=== PATIENT | female | born 1975 | race Caucasian/White ===

== ENCOUNTER 2021-08-03 06:25 | Day surgery (SDC) | payer OTHER, SELFPAY ==
--- NOTE | 2021-07-30 09:52 | P.CONAN_ITS ---
Documented by User: Lizz Canela NP 07/30/21 09:53 HPI - Anesthesia Eval Consult details Narrative: 45yo F for Colonoscopy PMFSH Past Medical History Medical History (Updated 07/27/21 @ 13:19 by Sylvie Sultana RN) Anxiety and depression Arthritis Asthma Scanlon esophagus Chronic pain Elevated cholesterol Frequent headaches GERD (gastroesophageal reflux disease) PTSD (post-traumatic stress disorder) Raynauds disease Surgical History Surgical History (Updated 07/27/21 @ 13:07 by Sylvie Sultana RN) History of esophagogastroduodenoscopy (EGD) History of hysterectomy History of lung surgery History of surgery on left wrist Hx of colonoscopy Hx of surgical procedure Status post cryoablation Social History Social History Patient Tobacco Use Status: Current everyday Tobacco user Use of substances other than those prescribed or required for medical reasons: No Have you been hit, kicked, punched, or otherwise hurt by someone within the past year? If so, by whom?: No Are you DNR?: No Advance Directives: No Advance Directives Information Provided: Yes Recently lost weight without trying: No Nutrition Risks: No Nutritional Risk Patient : No Meds Allergies Allergy/AdvReac Type Severity Reaction Status Date / Time codeine [CODEINE] Allergy Unknown THROAT Verified 08/03/21 06:08 SWELLING Codeine Phosphate Allergy Unknown hives/throat Uncoded 08/03/21 06:08 swelling Home Medications Medication Instructions Recorded Confirmed Last Taken Type Probiotic 07/27/21 Unknown History albuterol sulfate 90 mcg/actuation 2 puff INHALATION Q6H PRN 07/27/21 07/27/21 Unknown History aerosol inhaler (ProAir HFA) aripiprazole 10 mg tablet 1 tab PO DAILY 07/27/21 07/27/21 Unknown History armodafinil 150 mg tablet 1 tab PO DAILY 07/27/21 07/27/21 Unknown History ascorbic acid (vitamin C) 250 mg 250 mg PO DAILY 07/27/21 07/27/21 Unknown History tablet (Vitamin C) chlordiazepoxide-clidinium 5 1 cap PO DAILY PRN 07/27/21 07/27/21 Unknown History mg-2.5 mg capsule (Librax (with clidinium)) cholecalciferol (vitamin D3) 50 50 mcg PO DAILY 07/27/21 07/27/21 Unknown History mcg (2,000 unit) capsule (Vitamin D3) cyanocobalamin (vitamin B-12) 1,000 mcg PO DAILY 07/27/21 07/27/21 Unknown History 1,000 mcg tablet,extended release (Vitamin B-12 ER) duloxetine 60 mg capsule,delayed 1 cap PO DAILY 07/27/21 07/27/21 Unknown History release ibuprofen 600 mg tablet 600 mg PO Q8H PRN 07/27/21 07/27/21 Unknown History omeprazole 20 mg capsule,delayed 1 cap PO DAILY 07/27/21 07/27/21 Unknown History release thiamine HCl (vitamin B1) 500 mg 500 mg PO DAILY 07/27/21 07/27/21 Unknown History tablet Exam Exam Date and Time: July 30, [id number] Assessment and Plan Assessment Anesthesia Assessment: Chart Reviewed Documented by User: Maddy Multani MD 08/03/21 07:21 [facility] Past Medical History Medical History (Updated 07/27/21 @ 13:19 by Sylvie Sultana, RN) Anxiety and depression Arthritis Asthma Scanlon esophagus Chronic pain Elevated cholesterol Frequent headaches GERD (gastroesophageal reflux disease) PTSD (post-traumatic stress disorder) Raynauds disease Functional capacity: independent ambulation Patient : No Surgical History Surgical History (Updated 07/27/21 @ 13:07 by Sylvie Sultana, RN) History of esophagogastroduodenoscopy (EGD) History of hysterectomy History of lung surgery History of surgery on left wrist Hx of colonoscopy Hx of surgical procedure Status post cryoablation History of Problems with Anesthesia: No Social History Social History Patient Tobacco Use Status: Current everyday Tobacco user Use of substances other than those prescribed or required for medical reasons: No Have you been hit, kicked, punched, or otherwise hurt by someone within the past year? If so, by whom?: No Are you DNR?: No Advance Directives: No Advance Directives Information Provided: Yes Recently lost weight without trying: No Nutrition Risks: No Nutritional Risk Patient : No Meds Allergies Allergy/AdvReac Type Severity Reaction Status Date / Time codeine [CODEINE] Allergy Unknown THROAT Verified 08/03/21 06:08 SWELLING Codeine Phosphate Allergy Unknown hives/throat Uncoded 08/03/21 06:08 swelling Home Medications Medication Instructions Recorded Confirmed Last Taken Type Probiotic 07/27/21 Unknown History albuterol sulfate 90 mcg/actuation 2 puff INHALATION Q6H PRN 07/27/21 07/27/21 Unknown History aerosol inhaler (ProAir HFA) aripiprazole 10 mg tablet 1 tab PO DAILY 07/27/21 07/27/21 Unknown History armodafinil 150 mg tablet 1 tab PO DAILY 07/27/21 07/27/21 Unknown History ascorbic acid (vitamin C) 250 mg 250 mg PO DAILY 07/27/21 07/27/21 Unknown History tablet (Vitamin C) chlordiazepoxide-clidinium 5 1 cap PO DAILY PRN 07/27/21 07/27/21 Unknown History mg-2.5 mg capsule (Librax (with clidinium)) cholecalciferol (vitamin D3) 50 50 mcg PO DAILY 07/27/21 07/27/21 Unknown History mcg (2,000 unit) capsule (Vitamin D3) cyanocobalamin (vitamin B-12) 1,000 mcg PO DAILY 07/27/21 07/27/21 Unknown History 1,000 mcg tablet,extended release (Vitamin B-12 ER) duloxetine 60 mg capsule,delayed 1 cap PO DAILY 07/27/21 07/27/21 Unknown History release ibuprofen 600 mg tablet 600 mg PO Q8H PRN 07/27/21 07/27/21 Unknown History omeprazole 20 mg capsule,delayed 1 cap PO DAILY 07/27/21 07/27/21 Unknown History release thiamine HCl (vitamin B1) 500 mg 500 mg PO DAILY 07/27/21 07/27/21 Unknown His tory tablet Exam Airway Mallampati Class: II TM Dist: >3cm Neck ROM: Full Heart: RRR Lungs: CTA Assessment and Plan Final Anesthetic Review History of Problems with Anesthesia: No ASA Class: II Final Preanesthetic Review: No Changes in Pt Med Stat, Meds/Allgs Chart Reviewed, Consent Obtained/Reviewed and Anes Risks/Benef Reviewed Patient Risk: Low Procedure Risk: Low Anesthetic Plan Anesthetic Plan: MAC: Disposition: Standard PACU
[2021-08-03 06:29] VITALS: BP 139/81; PULSE 84; RESP 18; TEMP 36.6; O2SAT 99; BMI 29.2
[2021-08-03] MEDS: Lactated Ringers 1,000 ML 100 ML IVCONT (06:49)
[2021-08-03 08:24] VITALS: BP 116/73; PULSE 69; RESP 16; TEMP 36.7; O2SAT 97
--- NOTE | 2021-08-03 08:26 | PM.OP ---
Brief Operative Note Date of Service: 08/03/21 Pre-op diagnosis: Screening Post-op diagnosis: other (Internal hemorrhoids) Procedure: Colonoscopy to the cecum with biopsies Surgeon: Kolton Mccain Anesthesia: MAC Was an Recreation Instructor used for this Procedure?: No Estimated blood loss (mL): 2.0 Pathology: other (A. Bx from Ileocecal valve in area of previous adenoma) Condition: stable Disposition: PACU
[2021-08-03 08:39] VITALS: BP 123/76; PULSE 67; RESP 16; TEMP 36.7; O2SAT 99
--- NOTE | 2021-08-03 09:41 | OP_ITS ---
SURGEON: Kolton Mccain MD INDICATIONS: The patient presents for followup of colorectal cancer screening and personal history of tubular adenomas. Full consent obtained from her for this, including risks of bleeding and perforation. PREOPERATIVE DIAGNOSIS: Colorectal cancer screening and personal history of tubular adenomas. POSTOPERATIVE DIAGNOSIS: Colorectal cancer screening and personal history of tubular adenomas, internal hemorrhoids. PROCEDURE PERFORMED: Colonoscopy to the cecum with biopsies. ESTIMATED BLOOD LOSS: COMPLICATIONS: ANESTHESIA: Monitored anesthesia care. ASSISTANTS: SPECIMENS: DESCRIPTION OF PROCEDURE: Patient was placed in the left lateral decubitus position. The digital rectal exam revealed no abnormalities. The Olympus video pediatric colonoscope was entered into the rectum and advanced easily to the cecum. Once in the cecum, I did identify normal-appearing cecal pouch with appendiceal orifice and a normal-appearing ileocecal valve. The entire cecum was well visualized and appeared normal. The ileocecal valve was carefully inspected. Along the inferior portion, at the site of her previous adenoma, was some scarring extending from the very inferior portion of the ileocecal valve along the ascending colon. The ileocecal valve itself did not appear to have any evidence of adenoma and I only visualized normal ileal mucosa. I did obtain multiple biopsies from this inferior portion of the ileocecal valve as well as along the area of the scar in the ascending colon. The scope was then slowly withdrawn assessing all mucosal surfaces carefully. Preparation was excellent. I did not visualize any polyps, colitis, or angiodysplasia. In the rectum, scope was retroflexed visualizing some internal hemorrhoids, but no other pathology. The rectal mucosa appeared normal. Scope was straightened and withdrawn from the patient. She tolerated the procedure well and was returned to recovery area in stable condition. IMPRESSION: 1. Internal hemorrhoids. 2. Area of scar along the region of previous adenoma by the ileocecal valve, status post biopsy. PLAN: The results of the biopsies will be checked. Assuming there is no adenomatous tissue, I would then recommend a repeat colonoscopy in 2022, when she has her next upper endoscopy for the Scanlon's esophagus. She will otherwise see me on a p.r.n. basis. MD AIDAN Whitley/IVET / [phone] NICOLLE
--- NOTE | 2021-08-03 12:26 | HO.POSTANES ---
Post Anesthesia Evaluation Post Anesthesia Evaluation Vital Signs: Vital Signs Temp Pulse Resp BP Pulse Ox 08/03/21 08:39 98.1 F 67 16 123/76 99 08/03/21 08:24 98.1 F 69 16 116/73 97 08/03/21 06:29 98 F 84 18 139/81 99 Anesthesia: Monitored Mental Status: Awake Pain Control: Satisfactory Nausea/Vomiting: None Hydration: Adequate Anesthesia-Related Issues: No Anes. Related Issues
== END 2021-08-03 09:11 | disposition home or self-care (01) ==
PROVIDERS: PCP Nurse Practitioner Family; Visit Provider Internal Medicine
PROC: 0DJD8ZZ Inspection of Lower Intestinal Tract, Via Natural or Artificial Opening Endoscopic (ICD-10-PCS; CPT 45378; principal; 2021-08-03 07:30)
DX: Z12.11 Encounter for screening for malignant neoplasm of colon (principal); Z86.010 Personal history of colon polyps; K21.00 Gastro-esophageal reflux disease with esophagitis, without bleeding; K22.70 Barrett's esophagus without dysplasia; K58.9 Irritable bowel syndrome, unspecified; G89.29 Other chronic pain; I73.00 Raynaud's syndrome without gangrene; E78.00 Pure hypercholesterolemia, unspecified; J45.909 Unspecified asthma, uncomplicated; Z79.899 Other long term (current) drug therapy; Z79.1 Long term (current) use of non-steroidal anti-inflammatories (NSAID); Z88.8 Allergy status to other drugs, medicaments and biological substances; F17.210 Nicotine dependence, cigarettes, uncomplicated
CPT/HCPCS: 45380; 88305

== ENCOUNTER 2024-06-04 08:26 | Day surgery (SDC) | payer OTHER, SELFPAY ==
[2024-05-31 14:29] VITALS: BMI 33.7
[2024-06-04 08:36] VITALS: BMI 29.6
--- NOTE | 2024-06-04 08:39 | P.CONAN_ITS ---
[facility] Past Medical History Medical History COPD (chronic obstructive pulmonary disease) Frequent headaches Arthritis Scanlon esophagus GERD (gastroesophageal reflux disease) Chronic pain Raynauds disease PTSD (post-traumatic stress disorder) Anxiety and depression Asthma Elevated cholesterol Surgical History Surgical History Hx of surgical procedure History of surgery on left wrist Status post cryoablation Hx of colonoscopy History of esophagogastroduodenoscopy (EGD) History of lung surgery History of hysterectomy History of Problems with Anesthesia: No Social History Social History Are you a primary dog daycare provider to a significant other at home: No Do you presently have visiting nurse or other home services: No Patient Tobacco Use Status: Current everyday Tobacco user Tobacco use type: Cigarette Cigarette Packs Per Day: 1 Cigarettes Per Day: 20.0 Smoked in Last 30 Days: Yes Patient Interested in Nicotine Replacement: No Have you been hit, kicked, punched, or otherwise hurt by someone within the past year? If so, by whom?: No Are you DNR?: No Advance Directives: No Advance Directives Information Provided: Yes Recently lost weight without trying: No Nutrition Risks: No Nutritional Risk Meds Allergies Allergy/AdvReac Type Severity Reaction Status Date / Time codeine [CODEINE] Allergy Unknown THROAT Verified 06/04/24 08:38 SWELLING Active Medications: Current Medications Sodium Biphosphate/Sodium Phosphate (Sodium Phosphate,[place]-Dibasic 133 Ml Enema) 133 ml [place] ONCE PRN PRN Reason: Poor Colonoscopy Prep Results Home Medications ?Medication ?Instructions ?Recorded ?Confirmed ?Last Taken ?Type albuterol sulfate 90 mcg/actuation 2 puff inhalation Q6H PRN Wheezing 07/27/21 05/31/24 Unknown History aerosol inhaler (ProAir HFA) aripiprazole 10 mg tablet 1 tab PO DAILY 07/27/21 05/31/24 Unknown History armodafinil 150 mg tablet 1 tab PO DAILY 07/27/21 05/31/24 Unknown History ascorbic acid (vitamin C) 250 mg 250 mg PO DAILY 07/27/21 05/31/24 Unknown History tablet (Vitamin C) chlordiazepoxide-clidinium 5 1 cap PO DAILY PRN Abdominal 07/27/21 07/27/21 Unknown History mg-2.5 mg capsule (Librax (with Discomfort clidinium)) cholecalciferol (vitamin D3) 50 50 mcg PO DAILY 07/27/21 05/31/24 Unknown History mcg (2,000 unit) capsule (Vitamin D3) cyanocobalamin (vitamin B-12) 1,000 mcg PO DAILY 07/27/21 05/31/24 Unknown History 1,000 mcg tablet,extended release (Vitamin B-12 ER) duloxetine 60 mg capsule,delayed 1 cap PO DAILY 07/27/21 05/31/24 Unknown Histo ry release ibuprofen 600 mg tablet 600 mg PO Q8H PRN Pain 07/27/21 05/31/24 Unknown History omeprazole 20 mg capsule,delayed 1 cap PO DAILY 07/27/21 05/31/24 Unknown History release thiamine HCl (vitamin B1) 500 mg 500 mg PO DAILY 07/27/21 05/31/24 Unknown History tablet lisinopril 20 mg tablet 20 mg PO DAILY 05/31/24 05/31/24 Unknown History semaglutide 1 mg/dose (4 mg/3 mL) 1 mg subcut QWEEK 05/31/24 05/31/24 05/26/24 History subcutaneous pen injector (Ozempic) Exam Height,Weight and Vital Signs: Height 5 ft 3 in Weight 75.75 kg Airway Mallampati Class: II TM Dist: >3cm Neck ROM: Full Loose/Missing/Broken Teeth: No Heart: RRR Lungs: CTA Assessment and Plan Assessment Anesthesia Assessment: Anesthesia Plan Discussed and Chart Reviewed Final Anesthetic Review History of Problems with Anesthesia: No NPO: Yes ASA Class: III Final Preanesthetic Review: Meds/Allgs Chart Reviewed, Consent Obtained/Reviewed and Anes Risks/Benef Reviewed Patient Risk: Intermediate Procedure Risk: Intermediate Anesthetic Plan Anesthetic Plan: MAC: Disposition: Standard PACU
[2024-06-04] MEDS: Lactated Ringers 1,000 ML 80 ML IVCONT (08:46)
[2024-06-04 08:56] VITALS: BP 132/86; PULSE 90; RESP 18; TEMP 36.6; O2SAT 97
[2024-06-04 10:05] VITALS: BP 113/70; PULSE 78; RESP 18; TEMP 36.6; O2SAT 99
--- NOTE | 2024-06-04 10:14 | PM.OP ---
Brief Operative Note Date of Service: 06/04/24 Pre-op diagnosis: Scanlon's, Screening Post-op diagnosis: other (Hiatal hernia, Scanlon's, Gastric retention, Canceled colonoscopy) Procedure: Upper endoscopy aborted and Colonoscopy canceled due to gastric retention Surgeon: Kolton Mccain MD Anesthesia: MAC Was an Director Of Education And Training used for this Procedure?: No Estimated blood loss (mL): 0 Pathology: none sent Condition: stable Disposition: PACU
[2024-06-04 10:20] VITALS: BP 133/89; PULSE 72; RESP 18; O2SAT 99
--- NOTE | 2024-06-04 10:28 | OP_ITS ---
DATE OF SERVICE: 06/04/2024 SURGEON: Kolton Mccain MD INDICATIONS: The patient presents for evaluation of gastroesophageal reflux with Scanlon's esophagus, as well as for colorectal cancer screening and personal history of colon polyps. Full consent has been obtained from her for both procedures, including risks of bleeding and perforation. PREOPERATIVE DIAGNOSIS: POSTOPERATIVE DIAGNOSIS: PROCEDURE PERFORMED: Upper endoscopy. ESTIMATED BLOOD LOSS: COMPLICATIONS: ANESTHESIA: Monitored anesthesia care. ASSISTANTS: SPECIMENS: PREOPERATIVE DIAGNOSES: Gastroesophageal reflux, Scanlon's esophagus, colorectal cancer screening, and personal history of tubular adenoma of the colon. POSTOPERATIVE DIAGNOSES: Gastroesophageal reflux, Scanlon's esophagus, colorectal cancer screening, personal history of tubular adenoma of the colon, hiatal hernia, retained gastric contents with aborted EGD and canceled colonoscopy. DESCRIPTION OF PROCEDURE: The patient was placed in the left lateral decubitus position. The Olympus video gastroscope was passed in the posterior oropharynx and upper esophagus under direct vision. The scope was passed slowly to the distal esophagus. The gastroesophageal junction appeared at 35 cm. There were some small areas of irregularity consistent with Scanlon's mucosa. There was no evidence of any esophagitis nor any lesions. There was a small hiatal hernia. Immediately upon entering the stomach there was some retained gastric contents of a moderate amount. Therefore, the anesthesiologist felt that we could not proceed safely, and the scope was withdrawn from the patient without any biopsies being obtained. At that point, given the retained gastric contents as well as the fact that she is on Ozempic although reportedly having stopped that at least a week ago, the anesthesiologist felt that it would not be safe to proceed with general anesthesia due to the retained gastric contents and potential for aspiration with intubation. The procedure was very elective and therefore the procedure was canceled. She tolerated the procedure well otherwise and was returned to the recovery area in stable condition. IMPRESSION: 1. Hiatal hernia with Scanlon's esophagus, but biopsies were not obtained due the EGD having to be aborted due to gastric retention. PLAN: The patient will need to be rescheduled for both procedures. She will need to stop the Ozempic for at least 2 weeks and we will then also have her stay on a clear liquid diet for 48 hours in addition to doing the bowel prep again for the colonoscopy. This has been discussed with the patient and she has been given written instructions in this regard. MD AIDAN Whitley/IVET / [phone] NICOLLE
[2024-06-04 10:34] VITALS: BP 113/70; PULSE 69; RESP 18; TEMP 36.6; O2SAT 99
== END 2024-06-04 11:14 | disposition home or self-care (01) ==
PROVIDERS: PCP Nurse Practitioner Primary Care; Visit Provider Internal Medicine
PROC: (CPT 43235; principal; 2024-06-04 09:30)
DX: K22.70 Barrett's esophagus without dysplasia (principal); K44.9 Diaphragmatic hernia without obstruction or gangrene; K21.9 Gastro-esophageal reflux disease without esophagitis; Z12.11 Encounter for screening for malignant neoplasm of colon; Z86.0101 Personal history of adenomatous and serrated colon polyps; E78.00 Pure hypercholesterolemia, unspecified; J45.909 Unspecified asthma, uncomplicated; I73.00 Raynaud's syndrome without gangrene; Z79.899 Other long term (current) drug therapy; Z53.8 Procedure and treatment not carried out for other reasons
CPT/HCPCS: 43235; J2003; J2250; J2704

== ENCOUNTER 2024-10-29 07:27 | Day surgery (SDC) | payer OTHER, SELFPAY ==
[2024-10-25 12:27] VITALS: BMI 33.7
--- NOTE | 2024-10-26 09:04 | HO.ANESPROP2 ---
HPI - Anesthesia Eval Consult details Narrative: 49yo F for Upper Endoscopy and Colonoscopy Anesthesia Pre-Procedure Meds Is the patient on any of the following meds?: GLP1/DPP4 PMFSH Past Medical History Medical History HTN (hypertension) Depression Arthralgia COPD (chronic obstructive pulmonary disease) Frequent headaches Arthritis Scanlon esophagus GERD (gastroesophageal reflux disease) Chronic pain Raynauds disease PTSD (post-traumatic stress disorder) Anxiety and depression Asthma Elevated cholesterol Surgical History Surgical History Hx of hemorrhoidectomy Hx of knee surgery Hx of surgical procedure History of surgery on left wrist Status post cryoablation Hx of colonoscopy History of esophagogastroduodenoscopy (EGD) History of lung surgery History of hysterectomy History of Problems with Anesthesia: No Social History Social History Are you a primary dialysis patient care technician to a significant other at home: No Do you presently have visiting nurse or other home services: No Patient Tobacco Use Status: Former Tobacco user Tobacco use type: Cigarette Cigarette Packs Per Day: 1 Cigarettes Per Day: 20.0 Smoked in Last 30 Days: Yes Have you been hit, kicked, punched, or otherwise hurt by someone within the past year? If so, by whom?: No Are you DNR?: No Advance Directives: No Advance Directives Information Provided: Yes Recently lost weight without trying: No Nutrition Risks: No Nutritional Risk Patient : No Meds Allergies Allergy/AdvReac Type Severity Reaction Status Date / Time codeine [CODEINE] Allergy Unknown THROAT Verified 10/29/24 07:57 SWELLING Home Medications ?Medication ?Instructions ?Recorded ?Confirmed ?Last Taken ?Type albuterol sulfate 90 mcg/actuation 2 puff inhalation Q4-5H PRN 07/27/21 10/25/24 Unknown History aerosol inhaler (ProAir HFA) Wheezing aripiprazole 10 mg tablet 1 tab PO DAILY 07/27/21 10/25/24 Unknown History cholecalciferol (vitamin D3) 50 50 mcg PO DAILY 07/27/21 10/25/24 Unknown History mcg (2,000 unit) capsule (Vitamin D3) duloxetine 60 mg capsule,delayed 1 cap PO DAILY 07/27/21 10/25/24 Unknown History release ibuprofen 600 mg tablet 600 mg PO Q8H PRN Pain 07/27/21 10/25/24 Unknown History omeprazole 20 mg capsule,delayed 1 cap PO DAILY 07/27/21 10/25/24 Unknown History release lisinopril 20 mg tablet 20 mg PO DAILY 05/31/24 10/25/24 Unknown History semaglutide 1 mg/dose (4 mg/3 mL) 1 mg subcut QWEEK 05/31/24 10/25/24 10/13/24 History subcutaneous pen injector (Ozempic) armodafinil 200 mg tablet (Nuvigil) 200 mg PO BID 10/25/24 10/25/24 Unknown History fluticasone propionate 50 1 inh inhalation BID PRN Shortness 10/25/24 10/25/24 Unknown History mcg/actuation blister powder for Of Breath Or Wheezing inhalation Exam Height,Weight and Vital Signs: Height 5 ft 3 in Weight 86.183 kg Assessment and Plan Assessment Anesthesia Assessment: Chart Reviewed Final Anesthetic Review History of Problems with Anesthesia: No
--- NOTE | 2024-10-29 07:59 | P.CONAN_ITS ---
[facility] Past Medical History Medical History HTN (hypertension) Depression Arthralgia COPD (chronic obstructive pulmonary disease) Frequent headaches Arthritis Scanlon esophagus GERD (gastroesophageal reflux disease) Chronic pain Raynauds disease PTSD (post-traumatic stress disorder) Anxiety and depression Asthma Elevated cholesterol Functional capacity: independent ambulation Patient : No Family History Family history of problems with anesthesia: No Surgical History Surgical History Hx of hemorrhoidectomy Hx of knee surgery Hx of surgical procedure History of surgery on left wrist Status post cryoablation Hx of colonoscopy History of esophagogastroduodenoscopy (EGD) History of lung surgery History of hysterectomy History of Problems with Anesthesia: No Social History Social History Are you a primary intensive care ambulance paramedic to a significant other at home: No Do you presently have visiting nurse or other home services: No Patient Tobacco Use Status: Former Tobacco user Tobacco use type: Cigarette Cigarette Packs Per Day: 1 Cigarettes Per Day: 20.0 Smoked in Last 30 Days: Yes Have you been hit, kicked, punched, or otherwise hurt by someone within the past year? If so, by whom?: No Are you DNR?: No Advance Directives: No Advance Directives Information Provided: Yes Recently lost weight without trying: No Nutrition Risks: No Nutritional Risk Meds Allergies Allergy/AdvReac Type Severity Reaction Status Date / Time codeine [CODEINE] Allergy Unknown THROAT Verified 10/29/24 07:57 SWELLING Active Medications: Current Medications Albuterol Sulfate (Albuterol Sulfate (0.083%) 2.5 Mg/3 Ml Vial.Neb) 2.5 mg INHALE ONCE PRN PRN Reason: Shortness of Breath/Wheezing Lactated Ringer's (Lr) 1,000 mls @ 100 mls/hr IVCONT .Q10H ABDIRASHID Sodium Biphosphate/Sodium Phosphate (Sodium Phosphate,[place]-Dibasic 133 Ml Enema) 133 ml [place] ONCE PRN PRN Reason: Poor Colonoscopy Prep Results Home Medications ?Medication ?Instructions ?Recorded ?Confirmed ?Last Taken ?Type albuterol sulfate 90 mcg/actuation 2 puff inhalation Q4-5H PRN 07/27/21 10/25/24 Unknown History aerosol inhaler (ProAir HFA) Wheezing aripiprazole 10 mg tablet 1 tab PO DAILY 07/27/21 10/25/24 Unknown History cholecalciferol (vitamin D3) 50 50 mcg PO DAILY 07/27/21 10/25/24 Unknown History mcg (2,000 unit) capsule (Vitamin D3) duloxetine 60 mg capsule,delayed 1 cap PO DAILY 07/27/21 10/25/24 Unknown History release ibuprofen 600 mg tablet 600 mg PO Q8H PRN Pain 07/27/21 10/25/24 Unknown History omeprazole 20 mg capsule,delayed 1 cap PO DAILY 07/27/21 10/25/24 Unknown History release lisinopril 20 mg tablet 20 mg PO DAILY 05/31/24 10/25/24 Unknown History semaglutide 1 mg/dose (4 mg/3 mL) 1 mg subcut QWEEK 05/31/24 10/25/24 05/26/24 History subcutaneous pen injector (Ozempic) armodafinil 200 mg tablet (Nuvigil) 200 mg PO BID 10/25/24 10/25/24 Unknown History fluticasone propionate 50 1 inh inhalation BID PRN Shortness 10/25/24 10/25/24 Unknown History mcg/actuation blister powder for Of Breath Or Wheezing inhalation Exam Height,Weight and Vital Signs: Height 5 ft 3 in Weight 86.183 kg Airway Mallampati Class: II TM Dist: >3cm Neck ROM: Full Heart: RRR Lungs: CTA Assessment and Plan Assessment Anesthesia Assessment: Anesthesia Plan Discussed Final Anesthetic Review Family History of Problems with Anesthesia: No History of Problems with Anesthesia: No NPO: Yes ASA Class: II Final Preanesthetic Review: Meds/Allgs Chart Reviewed, Consent Obtained/Reviewed and Anes Risks/Benef Reviewed Patient Risk: Low Procedure Risk: Low Anesthetic Plan Anesthetic Plan: MAC: Disposition: Standard PACU
[2024-10-29 08:06] VITALS: BP 121/79; PULSE 91; RESP 18; TEMP 36.6; O2SAT 100
[2024-10-29 09:47] VITALS: BP 112/66; PULSE 77; RESP 16; TEMP 36.7; O2SAT 99
--- NOTE | 2024-10-29 09:51 | PM.OP ---
Brief Operative Note Date of Service: 10/29/24 Pre-op diagnosis: Scanlon's, Screening Post-op diagnosis: other (Same,. Hiatal hernia, Diverticulosis) Procedure: EGD with biopsies, Colonoscopy to the cecum and TI with biopsies Surgeon: Kolton Mccain MD Anesthesia: MAC Was an Supervisor Waterproofing used for this Procedure?: No Estimated blood loss (mL): 2.0 Pathology: other (A. EG Junction at 35cm B. Ileocecal valve) Condition: stable Disposition: PACU
[2024-10-29 10:02] VITALS: BP 119/70; PULSE 77; RESP 16; TEMP 36.7; O2SAT 100
--- NOTE | 2024-10-29 10:16 | HO.POSTANES ---
Post Anesthesia Evaluation Post Anesthesia Evaluation Date of Service: 10/29/24 Vital Signs: Vital Signs Temp Pulse Resp BP Pulse Ox O2 Del Method 10/29/24 10:02 98.1 F 77 16 119/70 100 Room Air 10/29/24 09:47 98.1 F 77 16 112/66 99 Room Air 10/29/24 08:06 97.9 F 91 18 121/79 100 Room Air Anesthesia: Monitored Mental Status: Awake Pain Control: Satisfactory Nausea/Vomiting: None Hydration: Adequate Anesthesia-Related Issues: No Anes. Related Issues
--- NOTE | 2024-10-29 11:46 | OP_ITS ---
DATE OF SERVICE: 10/29/2024 SURGEON: Kolton Mccain MD INDICATIONS: The patient presents for evaluation of history of Scanlon esophagus, personal history of tubular adenoma of the colon, and need for colorectal cancer screening. Full consent has been obtained from her for this, including risks of bleeding and perforation. PREOPERATIVE DIAGNOSIS: POSTOPERATIVE DIAGNOSIS: PROCEDURE PERFORMED: Esophagogastroduodenoscopy with biopsies, and colonoscopy to the cecum and terminal ileum with biopsies. ESTIMATED BLOOD LOSS: COMPLICATIONS: ANESTHESIA: Medication used, monitored anesthesia care. ASSISTANTS: SPECIMENS: PREOPERATIVE DIAGNOSES: Gastroesophageal reflux, history of Scanlon esophagus, history of colon polyps, and colorectal cancer screening. POSTOPERATIVE DIAGNOSES: Gastroesophageal reflux, history of Scanlon esophagus, history of colon polyps, and colorectal cancer screening, hiatal hernia, Scanlon esophagus, diverticulosis, internal hemorrhoids, rule out polyp on ileocecal valve. DESCRIPTION OF PROCEDURE: The patient was placed in the left lateral decubitus position. The Olympus video gastroscope was passed in the posterior oropharynx and upper esophagus under direct vision. The scope was passed slowly into the distal esophagus. The gastroesophageal junction appeared at 35 cm. This area was notable for 2 short approximately 1 cm areas of possible Scanlon mucosa. There was no overlying ulceration, lesion, nor inflammation. The scope entered the stomach. There was a small hiatal hernia. The scope was advanced to the pylorus, and the duodenum was cannulated to the descending portion. The duodenum including the bulb appeared normal without mass or ulceration. The scope was withdrawn back to the stomach. The gastric antrum and body appeared normal with good peristalsis. The scope was retroflexed visualizing the proximal stomach carefully, which appeared normal, without any sign of mass or ulceration. There was no evidence of any retained food as there had been last time since she stopped her Ozempic about 2 weeks ago. The scope was withdrawn back to the esophagus. Biopsies were obtained at the EG junction at 35 cm. Proximal to that, the esophageal mucosa appeared normal. Scope was withdrawn from the patient. She was turned around for the colonoscopy. The digital rectal exam revealed no abnormalities. The Olympus video pediatric colonoscope was entered into the rectum and advanced easily to the cecum. Once in the cecum, I did identify cecal pouch with appendiceal orifice. The terminal ileum was cannulated and appeared normal. Scope was withdrawn back in the colon. The ileocecal valve was well visualized. On the portion of the valve closest to the cecum, there were some areas that appeared to be possibly adenomatous and/or with some scarring from the previous polypectomy. Multiple biopsies were obtained from this area. The scope was then slowly withdrawn assessing all mucosal surfaces carefully. Preparation was excellent. I did not visualize any sign of polyps, colitis, nor angiodysplasia. There was a mild amount of sigmoid diverticulosis. In the rectum, scope was retroflexed visualizing internal hemorrhoids, but no other pathology. The rectal mucosa appeared normal. The scope was straightened and withdrawn from the patient. She tolerated both procedures well and was returned to the recovery area in stable condition. IMPRESSION: 1. Gastroesophageal reflux, history of Scanlon esophagus. 2. Rule out colon polyp on ileocecal valve. 3. Diverticulosis. 4. Internal hemorrhoids. PLAN: The results of the biopsies will be checked. If there is no evidence of any dysplasia within the Scanlon esophagus, I would recommend a repeat upper endoscopy in 3 years. Of note, a specimen was sent for the Cypher study. She will continue her daily omeprazole. If the biopsies from the ileocecal valve do not show any adenoma, I would then recommend a repeat colonoscopy in 3 years. If there is evidence of adenomatous tissue on the ileocecal valve, we would then want to proceed in approximately 1 year. She will otherwise see me on a p.r.n. basis. MD AIDAN Whitley/IVET / [id number]
== END 2024-10-29 10:26 | disposition home or self-care (01) ==
PROVIDERS: PCP Nurse Practitioner Primary Care; Visit Provider Internal Medicine
PROC: (CPT 45380; principal; 2024-10-29 08:30)
DX: Z12.11 Encounter for screening for malignant neoplasm of colon (principal); Z86.0101 Personal history of adenomatous and serrated colon polyps; K57.30 Diverticulosis of large intestine without perforation or abscess without bleeding; K64.8 Other hemorrhoids; K58.9 Irritable bowel syndrome, unspecified; K22.70 Barrett's esophagus without dysplasia; K21.00 Gastro-esophageal reflux disease with esophagitis, without bleeding; K44.9 Diaphragmatic hernia without obstruction or gangrene; I10 Essential (primary) hypertension; F10.90 Alcohol use, unspecified, uncomplicated; F17.210 Nicotine dependence, cigarettes, uncomplicated; Z79.85 Long-term (current) use of injectable non-insulin antidiabetic drugs; Z79.899 Other long term (current) drug therapy; Z88.8 Allergy status to other drugs, medicaments and biological substances; F41.9 Anxiety disorder, unspecified; F43.10 Post-traumatic stress disorder, unspecified; Z87.81 Personal history of (healed) traumatic fracture; Z98.890 Other specified postprocedural states
CPT/HCPCS: 45380; 43239; 88305; 88313; J2003; J2704